=== PATIENT | male | born 1980 | race Caucasian/White ===

== ENCOUNTER 2019-06-08 10:36 | Day surgery (SDC) | payer OTHER, SELFPAY | END 2019-06-08 16:58 | disposition home or self-care (01) | PROVIDERS: Visit Provider Surgery | DX: K40.90 Unilateral inguinal hernia, without obstruction or gangrene, not specified as recurrent (principal); Z87.891 Personal history of nicotine dependence | CPT/HCPCS: 49650; J0690; J1885; J2405; J2704; J2710; J3010; J3490 ==